=== PATIENT | male | born 1995 | race Caucasian/White ===

== ENCOUNTER 2018-07-18 21:47 | Emergency (ER) | payer SELFPAY ==
[2018-07-18 21:51] VITALS: BP 140/105; PULSE 121; RESP 18; TEMP 36.7; O2SAT 99
--- NOTE | 2018-07-18 22:03 | DI.RAD_ITS ---
SYMPTOM/DIAGNOSIS: CHEST PAIN CHEST X-RAY: PA and lateral. No priors. The heart is normal in size. The lungs are clear. The mediastinal structures and pleura appear intact. CONCLUSION: Normal chest.
[2018-07-18 22:30] LABS: Abs Immature Grans 0.01 k/cumm (0.0-0.09); Absolute Basophil Count 0.05 k/cumm (0.0-0.2); Absolute Eosinophil Count 0.57 k/cumm (0.0-0.7); Absolute Lymphocyte Count 2.73 k/cumm (1.2-3.4); Absolute Monocyte Count 0.76 k/cumm (0.11-0.7); Absolute Neutrophil Count 3.68 k/cumm (1.2-6.7); Basophils % 0.6; Eosinophils % 7.3; HCT 43.8 % (40.0-50.0); HGB 15.3 g/dL (13.5-17.5); Immature Grans % 0.1; Mean Corp. HGB Concentration 34.9 g/dL (32.0-36.0); Mean Corpuscular Volume 88.8 fL (80-95); Mean Platelet Volume 10.3 fL (8.0-11.0); Monocytes % 9.7; Neutrophils % 47.3; Platelet Count 284 x1000/uL (130-400); RBC 4.93 m/cumm (4.50-6.00); RBC Distribution Width 12.6 % (11.8-14.1)
[2018-07-18 22:45] LABS: ALT 33 U/L (12-78); AST 17 U/L (15-37); Albumin 4.9 g/dL (3.4-5.0); Alkaline Phosphatase 60 U/L (46-116); Anion Gap 11.3 mmol/L (3-11); BUN 8 mg/dL (7-18); Bilirubin, Total 0.4 mg/dL (0.2-1.0); CO2 27.7 mmol/L (21.0-32.0); CREATININE 0.78 mg/dL (0.70-1.30); Calcium 9.7 mg/dL (8.5-10.1); Chloride 101 mmol/L (98-107); Glucose 93 mg/dL (70-100); Potassium 3.6 mmol/L (3.5-5.1); Sodium 140 mmol/L (136-145); Total Protein 8.3 g/dL (6.4-8.2); Troponin I < 0.02 ng/mL (0.00-0.06)
[2018-07-18] MEDS: Normal Saline Flush 10 ML SYR IVP (22:51)
--- NOTE | 2018-07-18 23:03 | DI.VRAD_ITS ---
EXAM: XR Chest, 2 Views EXAM DATE/TIME: 07/18/2018 10:05 PM CLINICAL HISTORY: 23 years old, male; Pain; Chest pain TECHNIQUE: XR of the chest, 2 views. COMPARISON: No relevant prior studies available. FINDINGS: Lungs: Unremarkable. No consolidation. Pleural space: Unremarkable. No evidence of pneumothorax. Heart/Mediastinum: Unremarkable. Heart size within normal limits for technique. Bones/joints: Unremarkable. IMPRESSION: No acute findings. Dictated and Authenticated by: Shar Graves MD. Ordering:NAVJOT Tucker MD
--- NOTE | 2018-07-18 23:39 | W.ED.GENAD ---
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 Primary Care Provider: Rayray Spicer ED Provider: Garrett James Home Meds and New Rx's Prescriptions: Continued clonazepam 0.5 MG tablet 1 tab PO TID RF: 0 gabapentin [Neurontin] 800 MG tablet 1 tab PO TID RF: 0 cyclobenzaprine 5 MG tablet 5 mg PO Q8H PRN (Reason: Muscle Spasm) Qty: 6 RF: 0 methylphenidate HCl 10 MG tablet 10 mg PO .NOON RF: 0 quetiapine [Seroquel] 100 MG tablet 200 mg PO HS RF: 0 methylphenidate HCl 10 MG tablet 20 mg PO QAM RF: 0 sumatriptan succinate 100 MG tablet 100 mg PO PRN PRNRF: 0 Discharge Instructions Instructions: Upper Respiratory Infection (ED) Additional Instructions: Please take your medication as prescribed by your provider and please do not missed seizure medication any further. Due to your upper respiratory illness you should get plenty of rest and stay well-hydrated. Please follow-up with your primary care provider if not improving over the next week Stand Alone Forms: Work Release Referrals: Rayray Spicer [Primary Care Provider] - Medical Decision Making Patient presenting to the emergency department for flulike symptoms. Patient states that these have been going on for the past 3 days but due to extreme stress at work he has been taking additional Ritalin and also snorting his Ritalin to have enough energy to make it through the day. Patient states today he began having some nausea and vomited blood after having a bloody nose. Physical exam shows dried blood inside of left nare but no active bleeding, mild tonsillary and posterior pharynx erythema and nasal congestion otherwise unremarkable HEENT exam, tachycardia otherwise normal cardiac and respiratory examination. I feel that patient does have a viral upper respiratory tract infection but given abuse of Ritalin and him stating that he had taken additional doses along with snorting it I do feel that labs, IV fluids, chest x-ray and EKG are warranted given patient stated chest discomfort along with his cold symptoms. Patient is otherwise stable and nontoxic in appearance and I feel that her his symptoms are mostly due to viral illness and secondary symptoms of abuse of amphetamine. Review of labs is unremarkable, chest x-ray is normal, EKG reviewed with Dr. Matute and shows normal sinus rhythm with a rate of 75, normal axis, no significant ST findings suggestive of ischemia. Patient reassessed after 1 L of fluids and shows no more tachycardia and that patient mostly complains of headache and nasal congestion. Patient given ketorolac and Benadryl along with mild Zofran for nausea. Otherwise I feel the patient is able to be safely discharged home with recommendations to take time off work, rest, and to stop abuse of Ritalin. Patient encouraged to return for any new or worsening symptoms otherwise to follow-up with primary care for reassessment if not improving over the next week . after discussion of diagnosis and plan of care patient has no further needs, questions, or concerns and states clear understanding to return to the emergency department for any worsening symptoms. HPI General Mode of arrival: ambulatory. Date/Time Provider Initiated Documentation: 07/18/18 21:51. Limitations to Documentation: no limitations. Information obtained by: patient and RN notes reviewed. History of Present Illness described as severe, with intensity rated at 8. Quality is described as aching, and is localized to the head. Patient started experiencing this day(s) (3) and it has been constant. No relieving factors improve symptom(s), No exacerbating factors reported . Patient notes no other symptoms.. Related Data Home Medications Medication Instructions Recorded Confirmed clonazepam 1 tab PO TID 09/20/16 07/18/18 cyclobenzaprine 5 mg PO Q8H PRN #6 tab 09/20/16 07/18/18 gabapentin [Neurontin] 1 tab PO TID 09/20/16 07/18/18 methylphenidate HCl 10 mg PO .NOON 06/13/17 07/18/18 quetiapine [Seroquel] 200 mg PO HS 06/13/17 07/18/18 methylphenidate HCl 20 mg PO QAM 11/14/17 07/18/18 sumatriptan succinate 100 mg PO PRN PRN 11/14/17 07/18/18 Previous Rx's Medication Instructions Recorded cyclobenzaprine 5 mg PO Q8H PRN #6 tab 09/20/16 Allergies Allergy/AdvReac Type Severity Reaction Status Date / Time aripiprazole [From Abilify] Allergy Nightmares Unverified 07/18/18 22:04 lamotrigine [From Lamictal] Allergy Hallucinati Unverified 07/18/18 22:04 ons sertraline AdvReac Unknown Psychosis Unverified 07/18/18 22:04 General Stated Complaint: Nausea/Vomit/Diar KARLO: 3 Review of Systems Constitutional Reports chills, Reports difficulty sleeping, Reports fatigue, Reports fever(s), Reports headache(s), Reports malaise and Reports poor appetite ENT Reports as per HPI, Reports headache(s), Reports epistaxis, Reports nasal congestion, Reports sinus pressure and Reports sore throat Cardiovascular Denies dyspnea Respiratory Reports cough and Denies dyspnea Gastrointestinal Reports nausea Musculoskeletal Denies joint swelling Integumentary/Breasts Denies rash Neurologic Reports headache(s) Endocrine Reports fatigue [facility] Social History Smoking/Tobacco Use Status: Current-Occasional Exam Const General: cooperative, comfortable and no acute distress Orientation: alert, awake and oriented x3 HENMT Head: normal to inspection Ears: hearing grossly normal bilaterally and TM's normal bilaterally General nose exam: external nose normal, epistaxis on the left anterior source and dried blood present; no active bleeding and other (Nasal congestion is observed) Mouth: oral mucosae normal Throat: abnormal tonsil bilaterally erythema (mild) and posterior oropharynx abnormal erythema (mild); no cobblstoning, no edema and no exudates Eyes General: appearance normal, both eyes and all related structures Conjunctivae: conjunctivae normal Sclera: sclerae normal Neck Neck: normal visual inspection, full ROM, no lymphadenopathy, meningismus present and no JVD Resp Effort & Inspection: normal respiratory effort, able to speak in complete sentences, no audible wheezes, cough Quality of cough: actively coughing and not labored Auscultation: clear to auscultation bilaterally Cardio Rate: regular rate Rhythm: regular rhythm Heart Sounds: S1 normal and S2 normal Skin General skin exam: no rashes or lesions noted and dry skin Rashes: no rashes Neuro General: alert, awake, oriented x3 and gait normal Course Vital Signs Temperature 36.7 C 07/18/18 21:51 Pulse 121 H 07/18/18 21:51 Respiratory Rate 18 07/18/18 21:51 Blood Pressure 140/105 H 12/14/18 21:51 Pulse Oximetry 99 07/18/18 21:51 Temperature 36.7 C 07/18/18 21:51 Temperature Source Temporal Artery Scan 07/18/18 21:51 Pulse 121 H 07/18/18 21:51 Respiratory Rate 18 07/18/18 21:51 Respiratory Effort 07/18/18 21:51 Blood Pressure 140/105 H 07/18/18 21:51 Pulse Oximetry 99 07/18/18 21:51 Oxygen Delivery Method Room Air 07/18/18 21:51 Oxygen Flow Rate 0 07/18/18 21:51 Pain Level 7 07/18/18 21:51 Lab/Test Results Lab/Test Results: Laboratory Tests Range/Units 07/18/18 07/18/18 22:15 22:15 WBC (4.4-10.8) k/cumm 7.80 RBC (4.50-6.00) m/cumm 4.93 Hgb (13.5-17.5) g/dL 15.3 Hct (40.0-50.0) % 43.8 MCV (80-95) fL 88.8 MCH (27.0-33.0) pg 31.0 MCHC (32.0-36.0) g/dL 34.9 RDW (11.8-14.1) % 12.6 Plt Count (130-400) x1000/uL 284 MPV (8.0-11.0) fL 10.3 Immature Gran % 0.1 Neutrophils % 47.3 Lymphocytes % 35.0 Monocytes % 9.7 Eosinophils % 7.3 Basophils % 0.6 Absolute Neutrophils (1.2-6.7) k/cumm 3.68 Absolute Lymphocytes (1.2-3.4) k/cumm 2.73 Absolute Monocytes (0.11-0.7) k/cumm 0.76 H Absolute Eosinophils (0.0-0.7) k/cumm 0.57 Absolute Basophils (0.0-0.2) k/cumm 0.05 Sodium (136-145) mmol/L 140 Potassium (3.5-5.1) mmol/L 3.6 Chloride (98-107) mmol/L 101 Carbon Dioxide (21.0-32.0) mmol/L 27.7 Anion Gap (3-11) mmol/L 11.3 H BUN (7-18) mg/dL 8 Creatinine (0.70-1.30) mg/dL 0.78 Estimated GFR/1.73 m2 (mL/min/1.73m2) >= 60.00 Glucose (70-100) mg/dL 93 Calcium (8.5-10.1) mg/dL 9.7 Total Bilirubin (0.2-1.0) mg/dL 0.4 AST (15-37) U/L 17 ALT (12-78) U/L 33 Alkaline Phosphatase (46-116) U/L 60 Troponin I (0.00-0.06) ng/mL < 0.02 Total Protein (6.4-8.2) g/dL 8.3 H Albumin (3.4-5.0) g/dL 4.9
[2018-07-18] MEDS: diphenhydrAMINE 50 MG/ML VIAL 25 MG IVP (23:48)
[2018-07-18] MEDS: Ketorolac 30 MG/ML VIAL IVP (23:48)
[2018-07-18] MEDS: Ondansetron O.D.T. 4 MG TABEF (23:57)
[2018-07-19 00:20] VITALS: BP 116/69; PULSE 80; RESP 16; O2SAT 98
== END 2018-07-19 00:20 | disposition home or self-care (01) ==
PROVIDERS: Emergency Provider Nurse Practitioner Family; PCP Physician Assistant
DX: T43.632A Poisoning by methylphenidate, intentional self-harm, initial encounter (principal); R04.0 Epistaxis; J06.9 Acute upper respiratory infection, unspecified
CPT/HCPCS: 36415; 80053; 93005; 96374; 96375; 99285; 71046; 84484; 85025; 93010; J1200; J1885